=== PATIENT | male | born 2000 | race African-American/Black ===

== ENCOUNTER 2020-07-25 16:51 | Emergency (ER) | payer SELFPAY ==
[~2020-07-25] VITALS: Ht 188 cm; Wt 65.0 kg
[2020-07-25] MEDS ORDERED: IBUPROFEN 400 MG TABLET. PO ONE (18:15)
[2020-07-25] MEDS ORDERED: ACETAMINOPHEN 500 MG TABLET PO ONE (18:15)
[2020-07-25] MEDS ORDERED: ONDANSETRON PF 4 MG/2 ML VIAL. IV ONE (18:15)
[2020-07-25] MEDS ORDERED: IV NORMAL SALINE 1000ML BAG 1,000 ML IV ONE (18:15)
[2020-07-25 18:26] LABS: BILIRUBIN,URINE NEGATIVE (NEG); CLARITY,URINE CLEAR; COLOR,URINE YELLOW; NITRITE,URINE NEGATIVE (NEG); PH,URINE 8.5 (<5.0-8.0); PROTEIN,URINE NEGATIVE (NEG-TRACE)
[2020-07-25 18:34] LABS: BACTERIA,URINE 0 /HPF (0-FEW); RBC,URINE OCC /HPF (0-2); WBC,URINE OCC /HPF (0-4)
--- NOTE | 2020-07-25 19:19 | RAD ---
Exam: Chest one view INDICATION: Short of air, fever TECHNIQUE: Frontal view of the chest Comparisons: None FINDINGS: The cardiomediastinal silhouette and pulmonary vessels are within normal limits. The lung and pleural spaces are clear. IMPRESSION: No acute cardiopulmonary process. Electronically signed by: Ricardo Gibbons MD (07/25/2020 7:16 PM) SERGE
[2020-07-25 19:33] LABS: BASO % 0 % (0-3); EOS % 0 % (0-3); HEMATOCRIT 39.8 % (39.0-53.0); HEMOGLOBIN 13.4 g/dL (13.0-17.5); LYMPH # 1.1 x10^3/uL (1.0-4.8); LYMPH % 32 % (24-48); MEAN CORPUSCULAR HEMOGLOBIN 27 pg (25-35); MEAN CORPUSCULAR HGB CONC 34 g/dL (31-37); MEAN CORPUSCULAR VOLUME 79 fL (79-100); MONO # 0.6 x10^3/uL (0.0-1.1); MONO % 17 % (0-9); NEUT # 1.8 x10^3/uL (1.8-7.7); NEUT % 51 % (31-73); PLATELET COUNT 182 x10^3/uL (140-400); RED BLOOD COUNT 5.04 x10^6/uL (4.30-5.70); RED CELL DISTRIBUTION WIDTH 12.9 % (11.5-14.5); WHITE BLOOD COUNT 3.5 x10^3/uL (4.0-11.0)
--- NOTE | 2020-07-25 19:33 | PHYS DOC ---
General Adult EDM: Chief Complaint: FEVER HPI: HPI: Patient is a 20 year old AA male who presents to the emergency department with complaints of no appetite for the last 2 to 3 weeks. He states that he developed a fever today. He denies any cough, shortness of breath, sore throat, body aches, fatigue, or abdominal pain. He denies any decreased taste or smell. The patient denies any known exposure to COVID-19. He does work in a factory/warehouse environment. Patient states that he is regularly tested at work for COVID-19 is never tested positive. Patient states he has had intermittent nausea and diarrhea with the onset of his symptoms he denies any nausea, vomiting, or diarrhea today. He currently denies any complaints of pain. Review of Systems: Review of Systems: Constitutional: See HPI Eyes: Denies change in visual acuity. [] HENT: Denies nasal congestion or sore throat. [] Respiratory: Denies cough or shortness of breath. [] Cardiovascular: Denies chest pain or edema. [] GI: See HPI : Denies dysuria. [] Musculoskeletal: Denies back pain or joint pain. [] Integument: Denies rash. [] Neurologic: Denies headache; see HPI Complete ROS is negative unless otherwise stated in the HPI. Heart Score: Risk Factors: Risk Factors: DM, Current or recent (<one month) smoker, HTN, HLP, family history of CAD, obesity. Risk Scores: Score 0 - 3: 2.5% MACE over next 6 weeks - Discharge Home Score 4 - 6: 20.3% MACE over next 6 weeks - Admit for Clinical Observation Score 7 - 10: 72.7% MACE over next 6 weeks - Early Invasive Strategies Current Medications: Current Medications Medications (Trade) Dose Ordered Sig/Dima Start Time Stop Time Status Last Admin Dose Admin Acetaminophen (Tylenol) 1,000 mg 1X ONCE 07/25/20 18:15 07/25/20 18:19 DC 07/25/20 18:28 1,000 MG Ibuprofen (Motrin) 600 mg 1X ONCE 07/25/20 18:15 07/25/20 18:19 DC 07/25/20 18:28 600 MG Ondansetron HCl (Zofran) 4 mg 1X ONCE 07/25/20 18:15 07/25/20 18:19 DC 07/25/20 18:39 4 MG Sodium Chloride 1,000 ml @ 1,000 mls/hr 1X ONCE 07/25/20 18:15 07/25/20 19:14 DC 07/25/20 18:36 1,000 MLS/HR Allergies: Allergies: Allergies Coded Allergies Type Severity Reaction Last Updated Verified No Known Drug Allergies 07/25/20 No Physical Exam: PE: Constitutional: Well developed, well nourished, no acute distress, HENT: Normocephalic, atraumatic, bilateral external ears normal, bilateral TMs normal Eyes: PERRLA, conjunctiva injected bilaterally, no discharge. [] Neck: Normal range of motion, no stridor. [] Cardiovascular:Heart rate regular rhythm, no murmur [] Lungs & Thorax: Respirations even and unlabored, no retractions, no respiratory distress Skin: Warm, dry, flushed, hot, no rash Extremities: No cyanosis, ROM intact, no edema Neurologic: Alert and oriented X 3, no focal deficits noted. [] Psychologic: Affect normal, judgement normal, mood normal. Current Patient Data: Labs: Laboratory Tests Test 07/25/20 17:40 Urine Collection Type Void Urine Color Yellow Urine Clarity Clear Urine pH 8.5 (<5.0-8.0) Urine Specific Gerlaw 1.020 (1.000-1.030) Urine Protein Negative mg/dL (NEG-TRACE) Urine Glucose (UA) Negative mg/dL (NEG) Urine Ketones (Stick) Negative mg/dL (NEG) Urine Blood Negative (NEG) Urine Nitrite Negative (NEG) Urine Bilirubin Negative (NEG) Urine Urobilinogen Dipstick 1.0 mg/dL (0.2 mg/dL) Urine Leukocyte Esterase Negative (NEG) Urine RBC Occ /HPF (0-2) Urine WBC Occ /HPF (0-4) Urine Squamous Epithelial Cells Few /LPF Urine Bacteria 0 /HPF (0-FEW) Urine Mucus Slight /LPF EKG: EKG: [] Radiology/Procedures: Radiology/Procedures: PROCEDURE: CHEST AP ONLY Exam: Chest one view INDICATION: Short of air, fever TECHNIQUE: Frontal view of the chest Comparisons: None FINDINGS: The cardiomediastinal silhouette and pulmonary vessels are within normal limits. The lung and pleural spaces are clear. IMPRESSION: No acute cardiopulmonary process.[] Course & Med Decision Making: Course & Med Decision Making Pertinent Labs and Imaging studies reviewed. (See chart for details) 20-year-old male presented to the emergency department with concerns of no appetite with intermittent nausea and diarrhea for 3 weeks and a fever that began today. Patient refused testing for COVID-19 or influenza. His temperature on arrival was 103.1, the patient was given 600 mg of ibuprofen and a gram of Tylenol. His temperature at discharge was 98.4. CBC revealed a white blood cell count of 3.5; CMP revealed a sodium of 135, ferritin of 1338, elevated C-reactive protein at 5.0 otherwise unremarkable; urinalysis was unremarkable The patient denies any shortness of breath while he was in the emergency department his chest x-ray revealed no acute findings. Patient's vital signs are stable throughout the emergency department visit. Prescription was written for an albuterol inhaler to be used if shortness of breath develop. Patient was provided with COVID-19 quarantine instructions and he was advised to follow them until he had been asymptomatic for more than 48 hours. I advised the patient that without the test he is being diagnosed with COVID-19 and needs to strictly follow the instructions that are given to him. Patient verbalized an understanding of home care, medications, follow-up, and return to ED instructions and was in agreement with the plan of care. Jordyn Disclaimer: Jordyn Disclaimer: This electronic medical record was generated, in whole or in part, using a voice recognition dictation system. Departure Departure Impression: Primary Impression: Fever Qualified Codes: R50.9 - Fever, unspecified Disposition: 01 HOME, SELF-CARE Condition: STABLE Referrals: NO PCP (PCP) Patient Instructions: Fever, Adult, [id number] Additional Instructions: You have been tested for or diagnosed with COVID-19. It is an infection caused by a new type of coronavirus. COVID-19 will cause cold-like or mild flu symptoms in most. It can cause more severe symptoms like problems breathing in some. There is no treatment for COVID-19. The body will clear the infection over time. Self-care will help to ease discomfort. Steps to Take: Self-Care Rest as needed. Healthy habits may help you feel better. Steps include: Choose healthy foods including fruits and vegetables. Drink water throughout the day. Get plenty of sleep each night. If you smoke, try to quit. It may ease breathing. Avoid alcohol. Keep Others Healthy The virus can spread to others. Droplets are released every time you sneeze or cough. The droplets can get into the mouth, nose, or eyes of people near you and lead to infection. To lower the chances of spreading COVID-19 to others: Stay at home until your doctor has said it is safe to leave. If you tested positive this will mean staying isolated until both of the following are true: At least 7 days have passed since the start of illness. You are free of fever for at least 72 hours without the use of medicine. During this time: - Avoid public areas, events, or transportation. Do not return to work or school until your doctor has said it is safe to do so. - Call ahead if you need to go to a medical center. Let them know you may have COVID-19. It will help them guide you where to go. They may also ask you to wear a facemask when you come to the office. - If you call for emergency medical services, let them know you may have COVID- 19. While at home: - Try to avoid close contact with others. Stay about 6 feet away. - If possible, spend most of your time in a separate room from others. - Use a face mask if you will be in close contact with others such as sharing a room or vehicle. - Have someone wipe down common surfaces in the home. Use household surplus property disposal agent every day on areas like doorknobs, counters, or sinks. - Cough or sneeze into a tissue. Throw the tissue away right after use. If a tissue is not available, cough or sneeze into your elbow. - Wash your hands often. Wash them after sneezing or coughing. Use soap and water and wash for at least 20 seconds. Alcohol based hand sleeping room cleaner can be used if soap and water is not available. - Do not prepare food for others. Avoid sharing personal items like forks, spoons, or toothbrushes. - Avoid close contact with pets while you are sick. There is no evidence of the virus passing to pets. This is a safety step until more is known about this virus. Isolation can be frustrating. Social interaction can help. Keep in touch with friends and family through phone and tech options. You can still interact with others in your home, just keep a safe distance of about 6 feet. Follow-up: Your doctors office will check in with you to see if there are any changes in your health. You may be asked to keep track of symptoms to share with them. They will also let you know when you are clear to be in public again. Problems to Look Out For: Contact your doctor if your recovery is not going as you expect. Get emergency care if you have problems such as: - Trouble breathing - Nonstop chest pain or pressure - Changes in awareness, confusion, or problems waking - Lips or face have bluish color - Worsening of symptoms If you think you have an emergency, call for emergency medical services right away. As taken from [facility] Albuterol Sulfate (Proair Hfa) 8.5 Gm Hfa.aer.ad 2 PUFF IH PRN Q4-6HRS PRN for wheezing for 21 Days, #1 INHALER 0 Refills Prov: FATEMEH ESCOBEDO APRN 07/25/20 FATEMEH ESCOBEDO PEARL PELLER Jul 25, 2020 19:33
[2020-07-25 19:47] LABS: CALCIUM 8.1 mg/dL (8.5-10.1); CREATININE 1.1 mg/dL (0.7-1.3); GFR 103.3; POTASSIUM 3.5 mmol/L (3.5-5.1)
[2020-07-25 20:20] LABS: ALBUMIN 3.1 g/dL (3.4-5.0); ALBUMIN/GLOBULIN RATIO 0.7 (1.0-1.7); TOTAL PROTEIN 7.6 g/dL (6.4-8.2)
[2020-07-25 21:17] VITALS: BP 109/52
[2020-07-25] MEDS ORDERED: ALBU2.5V8 IH (21:29)
== END 2020-07-25 21:35 | disposition home or self-care (01) ==
LOC: ER 16:51
DX: R50.9 Fever, unspecified (principal); R11.0 Nausea; R19.7 Diarrhea, unspecified
CPT/HCPCS: 36415; 71045; 80053; 81001; 82728; 85025; 86140; 96361; 96374; 99284; J2405; J7030